=== PATIENT | male | born 1975 | race Caucasian/White ===

== ENCOUNTER 2019-07-06 14:24 | Inpatient (IN) | payer OTHER ==
[~2019-07-06] VITALS: Ht 188 cm; Wt 127.0 kg
[2019-07-06 09:20] VITALS: BP 148/88
[2019-07-06 17:15] LABS: HEMATOCRIT 43.5 % (42.0-54.0); HEMOGLOBIN 14.4 g/dL (13.5-17.5); MCH 29.9 pg (26.0-34.0); MCHC 33.1 g/dL (31.0-37.0); MCV 90.2 fL (80.0-100.0); MEAN PLATELET VOLUME 9.9 fL (7.4-10.4); PLATELET COUNT 404 10x3/uL (130-400); RBC 4.82 10x6/uL (4.20-6.10); RDW 14.9 % (11.5-14.5); WBC 22.9 10x3/uL (4.8-10.8)
[2019-07-06 17:20] LABS: INR 1.45 (0.85-1.17); PROTIME 17.5 SECONDS (11.6-15.0)
[2019-07-06 17:21] LABS: APTT 84.7 SECONDS (22.8-39.4)
[2019-07-06 17:30] LABS: CALC OSMOLALITY 275 mosm/kg (275-300); CALCIUM 9.2 mg/dL (8.5-10.1); CARBON DIOXIDE 26.3 mmol/L (21.0-32.0); CHLORIDE - SERUM 98 mmol/L (98-107); CREATININE - SERUM 0.9 mg/dL (0.6-1.3); GLUCOSE 135 mg/dL (74-106); POTASSIUM - SERUM 3.7 mmol/L (3.5-5.1); SODIUM 136 mmol/L (136-145); UREA NITROGEN 18 mg/dL (7-18); eGFR NON AFRICAN AMERICAN > 90 mL/min (90-120)
[2019-07-06 17:44] LABS: ALBUMIN 2.6 g/dL (3.4-5.0); ALKALINE PHOSPHATASE 344 U/L (46-116); ALT (SGPT) 85 U/L (10-68); BILIRUBIN - TOTAL 0.38 mg/dL (0.2-1.3); CKMB 0.1 U/L (0.0-3.6); CREATINE KINASE 27 UL (21-232); TROPONIN-I < 0.017 ng/mL (0.000-0.060)
--- NOTE | 2019-07-06 18:01 | NUR ---
LACTIC 2.[address] DR PENDLETON NOTIFIED.
[2019-07-06 18:03] LABS: LYMPHOCYTES 15 % (15-50); MONOCYTES 4 % (2-11); NEUTROPHILS 81 % (40-80); PLATELET ESTIMATE NORMAL
[2019-07-06 18:12] VITALS: BP 162/95
--- NOTE | 2019-07-06 20:35 | NUR ---
ZOSYN IV ANTIBIOTIC FINISHED AT THIS TIME.
[2019-07-06 21:20] VITALS: BP 148/88
[2019-07-06 23:40] VITALS: BP 148/88; BMI 36.0
[2019-07-06] MEDS ORDERED: IBUPROFEN100 MG/5 M PO (23:57)
[2019-07-07 01:39] VITALS: BP 131/53
--- NOTE | 2019-07-07 04:54 | NUR ---
LYING IN BED RESTING WITH EYES CLSOED. NO SIGNS OR SYMPTOMS OF DISTRESS NOTED. RESPIRATIONS EVEN AND UNLABORED. ALERT AND ORIENTED x4. UP WITH STANDBY ASSIST. PRN MORPHINE GIVEN FOR 10/10 PAIN. NO COMPLAINT OF PAIN AT THIS TIME. PT NO LONGER WANTS MORPHINE FOR PAIN INSTAD HE WANTS DILAUDID INSTEAD. CONTINENT OF BOWELL AND BLADDER. USES URINAL. BOWELL SOUNDS ACTIVE x4. STATES LAST BOWELL MOVEMNET 07/06/2019. STOMACH SOFT TO PALPATION. NPO AFTER MIDNIGHT FOR PROCEDURE. 22G RIGHT CHEST IV. PT REFUSED TO ANSWER SOME OF THE ADMISSION QUESTIONS. LOWER RIGHT FOOT RED, SWOLLEN, AND WARM TO THE TOUCH. PILLOW PLACED UNDER FOOT TO ELEVATE FOOT. BED IN LOWEST POSITION AND CALL LIGHT WITH IN REACH. PT ENCOURAGED TO CALL FOR HELP WHEN NEEDED. WILL CONTINUE MONITOR.
[2019-07-07 05:30] VITALS: BP 146/86
--- NOTE | 2019-07-07 07:29 | NUR ---
REPORT RECEIVED. WILL CONTINUE WITH POC. PT CURRENTLY ASLEEP WITH EYES CLOSED ON RIGHT SIDE. CALL LIGHT W/I REACH. RR EVEN AND UNLABORED ON RA. R.CHEST PIV IS SALINE LOCKED. NO S/S OF DISTRESS NOTED. WILL CTM.
[2019-07-07 07:31] LABS: CALC OSMOLALITY 272 mosm/kg (275-300); CALCIUM 8.7 mg/dL (8.5-10.1); CARBON DIOXIDE 27.7 mmol/L (21.0-32.0); CHLORIDE - SERUM 101 mmol/L (98-107); CREATININE - SERUM 0.8 mg/dL (0.6-1.3); GLUCOSE 98 mg/dL (74-106); MAGNESIUM - SERUM 2.2 mg/dL (1.8-2.4); PHOSPHOROUS 4.9 mg/dL (2.5-4.9); SODIUM 136 mmol/L (136-145); UREA NITROGEN 15 mg/dL (7-18); VANCOMYCIN - RANDOM 7.6 ug/mL (10.0-20.0); eGFR NON AFRICAN AMERICAN > 90 mL/min (90-120)
[2019-07-07 07:32] LABS: POTASSIUM - SERUM 4.3 mmol/L (3.5-5.1)
[2019-07-07 08:00] VITALS: BP 145/86
[2019-07-07 08:30] LABS: BASOPHILS 0.2 % (0-2); EOSINOPHILS 0.6 % (0-7); HEMOGLOBIN 12.3 g/dL (13.5-17.5); LYMPHOCYTES 14.4 % (15-50); MCHC 32.4 g/dL (31.0-37.0); MCV 89.6 fL (80.0-100.0); MEAN PLATELET VOLUME 10.3 fL (7.4-10.4); MONOCYTES 6.1 % (2-11); NEUTROPHILS 74.7 % (40-80); PLATELET COUNT 413 10x3/uL (130-400); RBC 4.24 10x6/uL (4.20-6.10)
[2019-07-07 08:34] LABS: WBC 16.9 10x3/uL (4.8-10.8)
[2019-07-07 12:03] VITALS: BP 138/91
[2019-07-07 13:14] LABS: UDS - AMPHET POSITIVE QUAL (NEGATIVE); UDS - BARB NEGATIVE QUAL (NEGATIVE); UDS - BENZO NEGATIVE QUAL (NEGATIVE); UDS - COCAINE NEGATIVE QUAL (NEGATIVE); UDS - OPIATE POSITIVE QUAL (NEGATIVE); UDS - PCP NEGATIVE QUAL (NEGATIVE); UDS - THC POSITIVE QUAL (NEGATIVE)
[2019-07-07 13:35] LABS: APPEARANCE CLEAR (CLEAR); COLOR YELLOW (YELLOW); GLUCOSE NEGATIVE (NEGATIVE); NITRITE NEGATIVE (NEGATIVE); PROTEIN NEGATIVE (NEGATIVE); SPECIFIC GRAVITY 1.015 (1.005-1.020)
[2019-07-07 13:36] LABS: BILIRUBIN NEGATIVE (NEGATIVE); KETONE NEGATIVE (NEGATIVE)
[2019-07-07 13:42] VITALS: Ht 188 cm; Wt 127.0 kg
--- NOTE | 2019-07-07 14:18 | MORECARE ---
CASE MANAGEMENT DISCHARGE SUMMARY PATIENT: MARILIN RICKS UNIT: [id number] ADM DATE: 07/06/19 AGE: 43 : 75 SEX: M ROOM/BED: D.1212 AUTHOR: ALONZO PALACIO PHYSICIAN: REFERRING PHYSICIAN: JACQUI AGUAYO MD DATE OF SERVICE: 07/07/19 Discharge Plan Patient Name: MARILIN RICKS Facility: [facility]:[place] : 1975 Planned Disposition: Home Anticipated Discharge Date: 07/11/19 Discharge Date: Expected LOS: 5 Initial Reviewer: [email or web address] Initial Review Date: 07/06/2019 Generated: 07/07/19 3:17 pm Patient Name: MARILIN RICKS Page [phone] at 1418 All edits/amendments must be made on the electronic document DICTATION DATE: 07/07/19 141 WAREHOUSE FOREMAN: HANS 07/07/19 1417 RPT#: [id number] DC DATE: STATUS: ADM IN [facility] [address] [place] [address] END OF REPORT
--- NOTE | 2019-07-07 14:27 | MORECARE ---
CASE MANAGEMENT DISCHARGE SUMMARY PATIENT: MARILIN RICKS UNIT: [id number] ADM DATE: 07/06/19 AGE: 43 : 75 SEX: M ROOM/BED: D.1212 AUTHOR: HAKEEM,DOC PHYSICIAN: REFERRING PHYSICIAN: JACQUI AGUAYO MD DATE OF SERVICE: 07/07/19 Discharge Plan Patient Name: MARILIN RICKS Facility: [facility]:[place] : 1975 Planned Disposition: Home Anticipated Discharge Date: 07/11/19 Discharge Date: Expected LOS: 5 Initial Reviewer: [email or web address] Initial Review Date: 07/06/2019 Generated: 07/07/19 3:27 pm Comments DCP- Discharge Planning Updated by [email or web address]: Bhavani Daniels on 07/07/19 1:[address] DC PLAN: Return home independently. ANTICIPATED DC NEEDS: denied known dc needs at time of assessment. CM met with patient to complete initial dc planning assessment. CM educated patient on the CM role and verbal consent given by patient to complete assessment. CM verified patient's address, phone number, and emergency contact phone numbers. Patient lives at home and his little brother lives with him. 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 At discharge patient plans to return home independently and feels this is a safe discharge. CM discussed availability of home health, rehab services, and medical equipment. Patient denied known discharge needs at this time. Transportation provider at discharge will be his brother. CM will continue to follow and will assist as needed with dc plans/needs. Bhavani Daniels RN, [facility] DCPIA - Discharge Planning Initial Assessment Updated by [email or web address]: Bhavani Daniels on 07/07/19 2:18 pm * Is the patient Alert and Oriented? Yes * How many steps to enter\exit or inside your home? None * PCP No PCP - Info given on MD's taking new patients. * Pharmacy [facility] [address] * Preadmission Environment Home with Family * ADLs Independent * Equipment None * List name and contact numbers for known caregivers / representatives who currently or will assist patient after discharge: Erickson Ricks - brother - [phone] * Verbal permission to speak to the caregivers and representatives has been obtained from the patient. Yes * Community resources currently utilized None * Additional services required to return to the preadmission environment? No * Can the patient safely return to the preadmission environment? Yes * Has this patient been hospitalized within the prior 30 days at any hospital? No Last DP export: 07/07/19 1:18 pm Patient Name: MARILIN RICKS Page [phone] at 1427 All edits/amendments must be made on the electronic document DICTATION DATE: 07/07/191426 FOILING MACHINE OPERATOR: HANS 07/07/191426 RPT#: [id number] DC DATE: STATUS: ADM IN [facility] [address] [place] [address] END OF REPORT
--- NOTE | 2019-07-07 14:45 | NUR ---
LEFT LOWER LEG IS RED AND EDEMATOUS. ON THE DORSAL FOOT THERE IS A HEALING BLISTER. A FEW SCABS ARE NOTED ON THE SANTIAGO AND CALF. THERE IS NO DRAINAGE OR ODOR. RECOMMENDED THAT PT KEEP HIS LEG CLEAN AND DRY AND ELEVATED.
[2019-07-07 16:17] VITALS: BP 139/78
--- NOTE | 2019-07-07 16:33 | NUR ---
PT LYING SEMI FOWLERS. CALL LIGHT W/I REACH. NS INFUSING @100ML/HR VIA R.CHEST PIV. PT REPORTS OF NO PAIN AT THIS TIME AND DENIES ANY NEEDS. WILL CTM.
[2019-07-07 20:02] VITALS: BP 146/77
--- NOTE | 2019-07-07 20:25 | NUR ---
EVENING ROUNDS COMPLETED. VSS, AAOX4. PT LAYING COMFORTABLY IN BED, COMPLAIN OF PAIN IN LEG AND BACK. IV DILAUDID GIVEN. PT DENIES ANY FURTHER NEEDS AT THIS TIME. WILL CPOC. CL WITHIN REACH.
[2019-07-08 01:08] VITALS: BP 140/91
--- NOTE | 2019-07-08 01:17 | NUR ---
PT C/O PAIN IN LEG/FOOT. IV PRN DILAUDID GIVEN. IV ZOSYN INFUSING AT THIS TIME. WILL CPOC.
[2019-07-08 06:05] VITALS: BP 96/52
[2019-07-08 07:07] LABS: BASOPHILS 0.3 % (0-2); EOSINOPHILS 0.8 % (0-7); HEMATOCRIT 39.2 % (42.0-54.0); HEMOGLOBIN 12.8 g/dL (13.5-17.5); LYMPHOCYTES 18.6 % (15-50); MCH 29.2 pg (26.0-34.0); MCHC 32.7 g/dL (31.0-37.0); MCV 89.5 fL (80.0-100.0); MEAN PLATELET VOLUME 9.6 fL (7.4-10.4); MONOCYTES 6.6 % (2-11); NEUTROPHILS 69.7 % (40-80); PLATELET COUNT 367 10x3/uL (130-400); RBC 4.38 10x6/uL (4.20-6.10); RDW 14.7 % (11.5-14.5); WBC 14.3 10x3/uL (4.8-10.8)
[2019-07-08 07:22] LABS: CALC OSMOLALITY 274 mosm/kg (275-300); CALCIUM 8.5 mg/dL (8.5-10.1); CARBON DIOXIDE 27.4 mmol/L (21.0-32.0); CHLORIDE - SERUM 101 mmol/L (98-107); CREATININE - SERUM 0.9 mg/dL (0.6-1.3); GLUCOSE 106 mg/dL (74-106); MAGNESIUM - SERUM 2.4 mg/dL (1.8-2.4); PHOSPHOROUS 4.4 mg/dL (2.5-4.9); SODIUM 137 mmol/L (136-145); UREA NITROGEN 14 mg/dL (7-18); eGFR NON AFRICAN AMERICAN > 90 mL/min (90-120)
[2019-07-08 09:04] VITALS: BP 131/76
[2019-07-08 12:20] VITALS: BP 143/87
--- NOTE | 2019-07-08 15:09 | NUR ---
APPLIED XEROFORM GAUZE OVER BLISTER ON LEFT FOOT, OVER PUSTULES ON INNER LEFT ANKLE AND SANTIAGO. COVERED WITH 4X4S AND WRAPPED WITH KERLIX.
[2019-07-08 16:00] VITALS: BP 159/95
--- NOTE | 2019-07-08 18:50 | NUR ---
PATIENT IN BED WITH FAMILY AT THE BEDSIDE. NO ACUTE S/S OF DISTRESS. NO COMPLAINTS AT THIS TIME. PATIENT IV R UPPER ARM INFUSING NORMAL SALINE @ 100 ML/HR. PATIENT HAS BLISTERS ON BOTH LEGS, WITH DRESSINGS C/D/I. CALL LIGHT IN PLACE. WILL CONTINUE TO MONITOR.
[2019-07-08 19:58] VITALS: BP 140/79
--- NOTE | 2019-07-09 02:52 | NUR ---
WITNESSED DILAUDID WASTE WITH ROHAN RIOS
--- NOTE | 2019-07-09 03:31 | NUR ---
I have reviewed this patient and I concur with the Shift Assessment completed by the Licensed Practical Nurse today this shift.
[2019-07-09 04:43] VITALS: BP 134/71
[2019-07-09 07:40] LABS: BASOPHILS 0.3 % (0-2); EOSINOPHILS 0.7 % (0-7); HEMATOCRIT 40.9 % (42.0-54.0); HEMOGLOBIN 13.4 g/dL (13.5-17.5); IMMATURE GRANULOCYTES 2.3 % (0-5); LYMPHOCYTES 17.2 % (15-50); MCH 29.4 pg (26.0-34.0); MCHC 32.8 g/dL (31.0-37.0); MCV 89.7 fL (80.0-100.0); MEAN PLATELET VOLUME 9.5 fL (7.4-10.4); MONOCYTES 5.6 % (2-11); NEUTROPHILS 73.9 % (40-80); PLATELET COUNT 414 10x3/uL (130-400); RBC 4.56 10x6/uL (4.20-6.10); RDW 14.6 % (11.5-14.5); WBC 14.7 10x3/uL (4.8-10.8)
[2019-07-09 07:47] VITALS: BP 151/69
--- NOTE | 2019-07-09 07:54 | NUR ---
ALERT AND ORIENTED X4. DRESSING INTACT TO LLE WITH DILAUDID TAKE FOR PAIN MANAGEMENT. PEDAL PULSES NOTED. IV TO RT UPPER ARM WITH NO S/S OF INFECTION/INFILTration with ivf infusing at prescribed rate.ENCOURAGED TO USE CALL LIGHT FOR ASSIST.
[2019-07-09 07:58] LABS: CALC OSMOLALITY 272 mosm/kg (275-300); CALCIUM 9.1 mg/dL (8.5-10.1); CHLORIDE - SERUM 101 mmol/L (98-107); CREATININE - SERUM 0.9 mg/dL (0.6-1.3); GLUCOSE 108 mg/dL (74-106); MAGNESIUM - SERUM 2.5 mg/dL (1.8-2.4); PHOSPHOROUS 4.5 mg/dL (2.5-4.9); POTASSIUM - SERUM 4.3 mmol/L (3.5-5.1); SODIUM 136 mmol/L (136-145); UREA NITROGEN 12 mg/dL (7-18); eGFR NON AFRICAN AMERICAN > 90 mL/min (90-120)
[2019-07-09 11:18] VITALS: BP 129/82
[2019-07-09 16:01] VITALS: BP 150/87
[2019-07-09 19:00] VITALS: BP 132/77
--- NOTE | 2019-07-09 22:39 | NUR ---
WITNESSED DILAUDID WASTE WITH ROHAN RIOS
[2019-07-10] VITALS: BP 136/72
[2019-07-10 04:00] VITALS: BP 137/76
[2019-07-10 07:13] LABS: BASOPHILS 0.3 % (0-2); EOSINOPHILS 0.8 % (0-7); HEMATOCRIT 42.8 % (42.0-54.0); HEMOGLOBIN 13.6 g/dL (13.5-17.5); IMMATURE GRANULOCYTES 1.8 % (0-5); LYMPHOCYTES 22.4 % (15-50); MCH 28.8 pg (26.0-34.0); MCHC 31.8 g/dL (31.0-37.0); MCV 90.7 fL (80.0-100.0); MEAN PLATELET VOLUME 9.5 fL (7.4-10.4); MONOCYTES 7.2 % (2-11); NEUTROPHILS 67.5 % (40-80); PLATELET COUNT 420 10x3/uL (130-400); RBC 4.72 10x6/uL (4.20-6.10); RDW 14.5 % (11.5-14.5)
[2019-07-10 07:21] LABS: WBC 10.8 10x3/uL (4.8-10.8)
[2019-07-10 07:41] LABS: CALC OSMOLALITY 273 mosm/kg (275-300); CALCIUM 9.1 mg/dL (8.5-10.1); CARBON DIOXIDE 28.2 mmol/L (21.0-32.0); CHLORIDE - SERUM 102 mmol/L (98-107); CREATININE - SERUM 0.9 mg/dL (0.6-1.3); GLUCOSE 110 mg/dL (74-106); MAGNESIUM - SERUM 2.4 mg/dL (1.8-2.4); PHOSPHOROUS 4.6 mg/dL (2.5-4.9); POTASSIUM - SERUM 4.2 mmol/L (3.5-5.1); SODIUM 136 mmol/L (136-145); UREA NITROGEN 14 mg/dL (7-18); eGFR NON AFRICAN AMERICAN > 90 mL/min (90-120)
[2019-07-10 08:00] VITALS: BP 142/79
--- NOTE | 2019-07-10 09:00 | NUR ---
ALERT AND ORIENTEED X4. DRESSING INTACT TO LLE WITH PEDAL PULSES NOTED WITH 1+ EDEMA NOTED TO LLE. IV TO LUE WITH IVF INFUSING AT PRESCRIBED RATE WITH NO S/S OF INFECTION/INFILTRATION NOTED. DILAUDID GIVEN PORN FOR PAIN MANAGEMENT AND EFFECTIVE. ENCOURAGED TO USE CALL LIGHT FOR ASSIST.
[2019-07-10 15:55] VITALS: BP 140/75
--- NOTE | 2019-07-10 19:35 | NUR ---
PATIENT RESTING IN BED AND DENIES NEEDS AT THIS TIME. DISCUSSED PAIN MEDS WITH PATIENT PER HIS REQUEST. PATIENT DENIES OTHER NEEDS AT THIS TIME. BED IN LOWEST POSITION AND CALL LIGHT WITHIN REACH. ENCOURAGED THE PATIENT TO CALL IF HE HAS NEEDS. WILL CONTINUE TO MONITOR.
[2019-07-10 20:32] VITALS: BP 139/93
[2019-07-11] VITALS (7 sets, daily range): BP systolic 118–163; BP diastolic 66–84
[2019-07-11 06:46] LABS: BASOPHILS 0.2 % (0-2); EOSINOPHILS 1.2 % (0-7); HEMATOCRIT 40.9 % (42.0-54.0); HEMOGLOBIN 13.1 g/dL (13.5-17.5); IMMATURE GRANULOCYTES 1.1 % (0-5); MCH 28.9 pg (26.0-34.0); MCV 90.3 fL (80.0-100.0); MEAN PLATELET VOLUME 9.4 fL (7.4-10.4); MONOCYTES 8.3 % (2-11); NEUTROPHILS 65.2 % (40-80); PLATELET COUNT 417 10x3/uL (130-400); RBC 4.53 10x6/uL (4.20-6.10); RDW 14.4 % (11.5-14.5); WBC 9.1 10x3/uL (4.8-10.8)
[2019-07-11 07:04] LABS: CALC OSMOLALITY 268 mosm/kg (275-300); CALCIUM 9.2 mg/dL (8.5-10.1); CARBON DIOXIDE 28.3 mmol/L (21.0-32.0); CHLORIDE - SERUM 101 mmol/L (98-107); GLUCOSE 99 mg/dL (74-106); MAGNESIUM - SERUM 2.3 mg/dL (1.8-2.4); PHOSPHOROUS 4.7 mg/dL (2.5-4.9); POTASSIUM - SERUM 4.5 mmol/L (3.5-5.1); SODIUM 134 mmol/L (136-145); UREA NITROGEN 15 mg/dL (7-18); eGFR NON AFRICAN AMERICAN 87 mL/min (90-120)
--- NOTE | 2019-07-11 08:06 | NUR ---
PT C/O SOB AND PAIN. PLACED ON 2L NC AND GAVE PERCOCET FOR PAIN LEVEL OF 9/10. PT DENIES ANY OTHER NEEDS AT THIS TIME. CALL LIGHT IN REACH, NAD NOTED, WILL CONTINUE TO MONITOR.
--- NOTE | 2019-07-11 10:18 | NUR ---
CALLED EVA BENITEZ APRN, AND NOTIFIED HER ABOUT PT NOT WANTING TO GET STUCK AGAIN TO GET 20G FOR CTA OF CHEST. PER EVA BENITEZ PT NEEDS TO HAVE TEST DONE.
--- NOTE | 2019-07-11 10:27 | NUR ---
PROVIDED VERBAL AND WRITTEN DISCHARGE TEACHING TO PT, WHO VERBALIZED UNDERSTANDING REGARDING TEACHING.
--- NOTE | 2019-07-11 10:43 | NUR ---
GAVE 1MG OF DILAUDID FOR PAIN LEVEL OF 10/10. SULY RAMON VASCULAR NURSE TO START NEW 2OG IV FOR CTA OF CHEST.
--- NOTE | 2019-07-11 13:38 | NUR ---
PT SIGNED CONSENTS FOR SURGERY, PRE-OP MEDS GIVEN, PT TO OR AT THIS TIME.
--- NOTE | 2019-07-11 19:23 | NUR ---
PATIENT RESTING IN BED WITH EYES CLOSED AND NO S/S OF DISTRESS. BED IN LOWEST POSITION AND CALL LIGHT WITHIN REACH. WILL CONTINUE TO MONITOR.
--- NOTE | 2019-07-11 20:24 | NUR ---
PATIENT VOIDED 600 ML POSTOP
[2019-07-12 00:43] VITALS: BP 131/85
[2019-07-12 05:50] VITALS: BP 153/70
[2019-07-12 06:11] LABS: BASOPHILS 0.2 % (0-2); EOSINOPHILS 1.2 % (0-7); HEMATOCRIT 40.8 % (42.0-54.0); IMMATURE GRANULOCYTES 0.5 % (0-5); LYMPHOCYTES 26.2 % (15-50); MCH 28.8 pg (26.0-34.0); MCHC 31.9 g/dL (31.0-37.0); MCV 90.3 fL (80.0-100.0); MEAN PLATELET VOLUME 9.3 fL (7.4-10.4); MONOCYTES 8.5 % (2-11); NEUTROPHILS 63.4 % (40-80); PLATELET COUNT 458 10x3/uL (130-400); RBC 4.52 10x6/uL (4.20-6.10); RDW 14.5 % (11.5-14.5); WBC 8.4 10x3/uL (4.8-10.8)
[2019-07-12 06:25] LABS: ALBUMIN 2.6 g/dL (3.4-5.0); ALKALINE PHOSPHATASE 228 U/L (46-116); ALT (SGPT) 48 U/L (10-68); CALC OSMOLALITY 270 mosm/kg (275-300); CARBON DIOXIDE 28.4 mmol/L (21.0-32.0); CHLORIDE - SERUM 101 mmol/L (98-107); CREATININE - SERUM 0.9 mg/dL (0.6-1.3); GLUCOSE 90 mg/dL (74-106); POTASSIUM - SERUM 4.7 mmol/L (3.5-5.1); PROTEIN - SERUM 8.2 g/dL (6.4-8.2); SODIUM 135 mmol/L (136-145); UREA NITROGEN 15 mg/dL (7-18); eGFR NON AFRICAN AMERICAN > 90 mL/min (90-120)
[2019-07-12 08:23] VITALS: BP 131/85
--- NOTE | 2019-07-12 09:05 | NUR ---
GAVE PERCOCET FOR PAIN LEVEL OF 9/10. PT REFUSED NICOTINE PATCH. WAITING ON VANC TROUGH TO HANG VANCOMYCIN. PT DENIES ANY OTHER NEEDS AT THIS TIME. CALL LIGHT IN REACH, NAD NOTED, WILL CONTINUE TO MONITOR.
--- NOTE | 2019-07-12 11:13 | NUR ---
GAVE 1MG OF DILAUDID FOR PAIN LEVEL OF 9/10. PT DENIES ANY OTHER NEEDS AT THIS TIME. PIPE SMOKING MACHINE OPERATOR AT BEDSIDE. CALL LIGHT IN REACH, NAD NOTED, WILL CONTINUE TO MONITOR.
[2019-07-12 12:00] VITALS: BP 134/69
[2019-07-12 15:33] VITALS: BP 131/71
[2019-07-12 20:09] VITALS: BP 154/80
[2019-07-13 00:23] VITALS: BP 122/65
[2019-07-13 06:05] VITALS: BP 118/76
[2019-07-13 06:12] LABS: BASOPHILS 0.3 % (0-2); EOSINOPHILS 1.3 % (0-7); HEMATOCRIT 40.9 % (42.0-54.0); HEMOGLOBIN 13.1 g/dL (13.5-17.5); IMMATURE GRANULOCYTES 0.4 % (0-5); MCH 28.8 pg (26.0-34.0); MCV 89.9 fL (80.0-100.0); MEAN PLATELET VOLUME 9.1 fL (7.4-10.4); PLATELET COUNT 482 10x3/uL (130-400); RBC 4.55 10x6/uL (4.20-6.10); RDW 14.3 % (11.5-14.5); WBC 7.7 10x3/uL (4.8-10.8)
[2019-07-13 06:57] LABS: ALBUMIN 2.6 g/dL (3.4-5.0); ALKALINE PHOSPHATASE 197 U/L (46-116); ALT (SGPT) 44 U/L (10-68); BILIRUBIN - TOTAL 0.25 mg/dL (0.2-1.3); CALC OSMOLALITY 271 mosm/kg (275-300); CALCIUM 8.7 mg/dL (8.5-10.1); CARBON DIOXIDE 28.1 mmol/L (21.0-32.0); CHLORIDE - SERUM 102 mmol/L (98-107); CREATININE - SERUM 0.9 mg/dL (0.6-1.3); GLUCOSE 100 mg/dL (74-106); POTASSIUM - SERUM 4.5 mmol/L (3.5-5.1); PROTEIN - SERUM 8.4 g/dL (6.4-8.2); SODIUM 136 mmol/L (136-145); UREA NITROGEN 13 mg/dL (7-18); eGFR NON AFRICAN AMERICAN > 90 mL/min (90-120)
[2019-07-13 07:23] VITALS: BP 152/95
[2019-07-13 12:03] VITALS: BP 137/82
--- NOTE | 2019-07-13 12:21 | NUR ---
1MG OF DILAUDID GIVEN FOR PAIN LEVEL OF 10/10. ANAND MAR APRN AT BEDSIDE TO CHANGE LEG DRESSING.
--- NOTE | 2019-07-13 14:27 | NUR ---
Nutrition Follow-up: Chart reviewed, I&D yesterday. Plans for repeat I&D tomorrow. Diet: Regular PO intake: 75-100% x all meals Last BM: 07/12/19. WT: 280# (07/07/19), no new wt Meds and labs reviewed. Patient appears to remain at low nutrition risk at this time. RD will continue to monitor nutrition risk status per policy.
[2019-07-13 16:20] VITALS: BP 142/92
--- NOTE | 2019-07-13 16:21 | NUR ---
1 MG OF DILAUDID GIVEN FOR PAIN LEVEL OF 9/10. PT DENIES ANY OTHER NEEDS AT THIS TIME. CALL LIGHT IN REACH.
--- NOTE | 2019-07-13 19:04 | NUR ---
CALLED PHARMACY AND TALKED TO ELTICIA, INFORMED HIM THAT [facility] IS OUT OF ZOSYN.
[2019-07-13 20:17] VITALS: BP 153/78
--- NOTE | 2019-07-13 20:45 | NUR ---
EVENING ROUNDS COMPLETED. VSS, AAOX4, NO S/S OF DISTRESS. ALTHOUGH PT C/O PAIN IN LEFT LOWER LEG. PRN DILAUDID GIVEN. DRESSING TO LLL APPEARS C/D/I. PT DENIES ANY FURTHER NEEDS AT THIS TIME. WILL CPOC.
[2019-07-14 00:34] VITALS: BP 129/67
[2019-07-14 06:40] VITALS: BP 128/68
[2019-07-14 06:43] LABS: BASOPHILS 0.5 % (0-2); EOSINOPHILS 1.4 % (0-7); HEMATOCRIT 43.3 % (42.0-54.0); HEMOGLOBIN 13.7 g/dL (13.5-17.5); IMMATURE GRANULOCYTES 0.3 % (0-5); LYMPHOCYTES 32.7 % (15-50); MCH 28.8 pg (26.0-34.0); MCHC 31.6 g/dL (31.0-37.0); NEUTROPHILS 55.1 % (40-80); PLATELET COUNT 463 10x3/uL (130-400); RBC 4.76 10x6/uL (4.20-6.10); RDW 14.1 % (11.5-14.5); WBC 7.8 10x3/uL (4.8-10.8)
[2019-07-14 07:03] LABS: ALBUMIN 2.6 g/dL (3.4-5.0); ALKALINE PHOSPHATASE 177 U/L (46-116); ALT (SGPT) 56 U/L (10-68); BILIRUBIN - TOTAL 0.28 mg/dL (0.2-1.3); CALC OSMOLALITY 272 mosm/kg (275-300); CALCIUM 8.8 mg/dL (8.5-10.1); CARBON DIOXIDE 28.3 mmol/L (21.0-32.0); CHLORIDE - SERUM 102 mmol/L (98-107); CREATININE - SERUM 0.9 mg/dL (0.6-1.3); GLUCOSE 104 mg/dL (74-106); POTASSIUM - SERUM 4.3 mmol/L (3.5-5.1); PROTEIN - SERUM 8.7 g/dL (6.4-8.2); SODIUM 136 mmol/L (136-145); UREA NITROGEN 14 mg/dL (7-18); eGFR NON AFRICAN AMERICAN > 90 mL/min (90-120)
--- NOTE | 2019-07-14 07:10 | NUR ---
REPORT RECEIVED FROM METALLURGICAL TECHNICIAN AND PATIENT CARE ASSUMED. PATIENT LAYING IN BED ON BACK WITH EYES CLOSED AND BREATHING EVENLY. WILL CONTINUE WITH PLAN OF CARE.
[2019-07-14 07:21] VITALS: BP 132/83
[2019-07-14 10:44] VITALS: BP 146/76
--- NOTE | 2019-07-14 11:55 | NUR ---
PATIENT LAYING IN BED WATCHING TV. PATIENT DENIES ANY NEEDS OR PAIN. WILL CONTINUE TO MONITOR. SR UP X 2 BED IN LOW POSITION AND CALL LIGHT IN REACH.
--- NOTE | 2019-07-14 13:20 | NUR ---
PATIENT IS STABLE AND VSS. CALL FROM SURGERY TEAM TO PREOP PATIENT. PREOP0 PER MAR ORDERS. PATIENT TO SURGERY VIA HOSPITAL BED AND ACCOMPANIED BY SURGERY STAFF. WILL CONTINUE TO MONITOR. SR UP X 2 BED IN LOW POSITION AND CALL LIGHT IN REACH.
--- NOTE | 2019-07-14 15:53 | NUR ---
CONSULTED ANESTHESIA REGARDING PERSISTENT ELEVATED BLOOD PRESSURE. VERBAL ORDERS RECEIVED FROM DR. GONZALES TO ADMINISTER HYDRALAZINE 10MG X1 IN PACU NOW. MAY REPEAT HYDRALAZINE 10MG X1 IN PACU PRN AFTER 10 MINUTES. ORDERS RECEIVED AND IMPLEMENTED. WILL CONTINUE TO MONITOR.
[2019-07-14 16:15] VITALS: BP 147/83
--- NOTE | 2019-07-14 19:55 | NUR ---
LYING IN BED WATCHING TV. ALERT AND ORIENTED X4. VERY TALKATIVE. RATES PAIN IN LLE 8. JUST RECEIVED PAIN MED AT SHIFT CHANGE. WOUND VAC WITH DOUBLE PORT SUCTION NOTED TO LLE WITH BLOODY DRAINAGE IN CANISTER. PEDAL PULSES WNL BILAT. ERSP EVEN AND NONLABORED. PROD COUGH REPORTED WITH WHITE SPUTUM. NS @ 100 MLHR INFUSING IN LT AC WITHOUT DIFF. SALINE LOCK NOTED TO LT FOREARM. SR ELEVATED X2. CL IN REACH.
--- NOTE | 2019-07-14 20:24 | NUR ---
MEDICATED WITH PERCOCET FOR C/O BREAKTHROUGH PAIN IN LLE. CL IN REACH.
[2019-07-14 20:43] VITALS: BP 144/80
--- NOTE | 2019-07-14 22:45 | NUR ---
REQUESTS DILAUDID FOR LLE PAIN. CL IN REACH. NO DISTRESS.
[2019-07-15 00:48] VITALS: BP 145/83
--- NOTE | 2019-07-15 01:47 | NUR ---
LYING IN BED WITH EYES CLOSED. RESP EVEN AND NONLABORED. NO DISTRESS. CL IN REACH.
--- NOTE | 2019-07-15 02:20 | NUR ---
REQUESTS PAIN MED. TOOK PERCOCET IN ROOM AND SCANNED IT AND OPENED PACKAGE AND THEN HE STATES HE WANTS THE DILAUDID. PERCOCET WASTED WITH KENDRA RESENDEZ.
--- NOTE | 2019-07-15 02:57 | NUR ---
MEDICATED WITH DILAUDID FOR C/O LLE RATING 9. CL IN REACH.
[2019-07-15 05:09] VITALS: BP 154/77
[2019-07-15 06:08] LABS: ALBUMIN 2.7 g/dL (3.4-5.0); ALKALINE PHOSPHATASE 173 U/L (46-116); ALT (SGPT) 58 U/L (10-68); BILIRUBIN - TOTAL 0.28 mg/dL (0.2-1.3); CALC OSMOLALITY 268 mosm/kg (275-300); CALCIUM 8.8 mg/dL (8.5-10.1); CARBON DIOXIDE 24.1 mmol/L (21.0-32.0); CHLORIDE - SERUM 102 mmol/L (98-107); CREATININE - SERUM 0.9 mg/dL (0.6-1.3); GLUCOSE 120 mg/dL (74-106); POTASSIUM - SERUM 4.4 mmol/L (3.5-5.1); SODIUM 133 mmol/L (136-145); eGFR NON AFRICAN AMERICAN > 90 mL/min (90-120)
[2019-07-15 06:10] LABS: UREA NITROGEN 19 mg/dL (7-18)
[2019-07-15 06:19] LABS: BASOPHILS 0.1 % (0-2); EOSINOPHILS 0 % (0-7); HEMOGLOBIN 13.6 g/dL (13.5-17.5); IMMATURE GRANULOCYTES 0.3 % (0-5); LYMPHOCYTES 14.9 % (15-50); MCH 28.8 pg (26.0-34.0); MCHC 31.6 g/dL (31.0-37.0); MCV 90.9 fL (80.0-100.0); MEAN PLATELET VOLUME 9.2 fL (7.4-10.4); NEUTROPHILS 79.7 % (40-80); RBC 4.73 10x6/uL (4.20-6.10); RDW 14.1 % (11.5-14.5)
[2019-07-15 06:29] LABS: PLATELET COUNT 565 10x3/uL (130-400); WBC 11.5 10x3/uL (4.8-10.8)
--- NOTE | 2019-07-15 07:34 | NUR ---
AWAKE AND ALERT. ORIENTED X3. REQUESTED AND GIVEN 1MG DILAUDID SLOW IVP FOR C/O LEFT FOOT PAIN LEVEL 9. WILL MONITOR. LUNGS ARE CLEAR BILATERALLY, NO COUGH NOTED. SKIN IS INTACT WITHOUT REDNESS EXCEPT LEFT FOOT WHICH HAS A DRY INTACT DRESSING IN PLACE WITH WOUND VAC. DENIES NEEDS. MIDLINE TO RIGHT AC AREA IS PATENT WITHOUT REDNESS AT INSERTION SITE.
[2019-07-15 08:03] VITALS: BP 121/78
--- NOTE | 2019-07-15 09:45 | NUR ---
ATE MOST OF BREAKFAST. GIVEN LOVENOX PER ORDERS. DENIES NEEDS. NO C/O AT THIS TIME.
--- NOTE | 2019-07-15 09:45 | MORECARE ---
CASE MANAGEMENT DISCHARGE SUMMARY PATIENT: MARILIN RICKS UNIT: [id number] ADM DATE: 07/06/19 AGE: 43 : 75 SEX: M ROOM/BED: D.1212 AUTHOR: HAKEEM,DOC PHYSICIAN: REFERRING PHYSICIAN: JACQUI AGUAYO MD DATE OF SERVICE: 07/15/19 Discharge Plan Patient Name: MARILIN RICKS Facility: [facility]:[place] : 1975 Planned Disposition: Home Anticipated Discharge Date: 07/11/19 Discharge Date: Expected LOS: 5 Initial Reviewer: [email or web address] Initial Review Date: 07/06/2019 Generated: 07/15/19 10:44 am DCP- Discharge Planning Updated by [email or web address]: Bhavani Daniels on 07/07/19 1:[address] DC PLAN: Return home independently. ANTICIPATED DC NEEDS: denied known dc needs at time of assessment. CM met with patient to complete initial dc planning assessment. CM educated patient on the CM role and verbal consent given by patient to complete assessment. CM verified patient's address, phone number, and emergency contact phone numbers. Patient lives at home and his little brother lives with him. 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 At discharge patient plans to return home independently and feels this is a safe discharge. CM discussed availability of home health, rehab services, and medical equipment. Patient denied known discharge needs at this time. Transportation provider at discharge will be his brother. CM will continue to follow and will assist as needed with dc plans/needs. Bhavani Dnaiels RN, [facility] DCPIA - Discharge Planning Initial Assessment Updated by [email or web address]: Bhavani Daniels on 07/07/19 2:18 pm * Is the patient Alert and Oriented? Yes * How many steps to enter\exit or inside your home? None * PCP No PCP - Info given on MD's taking new patients. * Pharmacy [facility] [address]. * Preadmission Environment Home with Family * ADLs Independent * Equipment None * List name and contact numbers for known caregivers / representatives who currently or will assist patient after discharge: Erickson Ricks - brothhernando - [phone] * Verbal permission to speak to the caregivers and representatives has been obtained from the patient. Yes * Community resources currently utilized None * Additional services required to return to the preadmission environment? No * Can the patient safely return to the preadmission environment? Yes * Has this patient been hospitalized within the prior 30 days at any hospital? No External Providers External Provider: [facility] [employer] Next Contact Date: Service Request Date: Service Type: Resolution: Reviewer: Comments: Last DP export: 07/07/19 1:27 pm Patient Name: MARILIN RICKS Page [phone] at 0945 All edits/amendments must be made on the electronic document DICTATION DATE: 07/15/19943 CAR BARN LABORER: HANS 07/15/19943 RPT#: [id number] DC DATE: STATUS: ADM IN [facility] [address] [place] [address] END OF REPORT
--- NOTE | 2019-07-15 09:52 | MORECARE ---
CASE MANAGEMENT DISCHARGE SUMMARY PATIENT: MARILIN RICKS UNIT: [id number] ADM DATE: 07/06/19 AGE: 43 : 75 SEX: M ROOM/BED: D.1212 AUTHOR: HAKEEM,DOC PHYSICIAN: REFERRING PHYSICIAN: JACQUI AGUAYO MD DATE OF SERVICE: 07/15/19 Discharge Plan Patient Name: MARILIN RICKS Facility: [facility]:[place] : 1975 Planned Disposition: Home Anticipated Discharge Date: 07/11/19 Discharge Date: Expected LOS: 5 Initial Reviewer: [email or web address] Initial Review Date: 07/06/2019 Generated: 07/15/19 10:52 am Comments DCP- Discharge Planning Updated by [email or web address]: Shelley Aj on 07/15/19 8:[address] Received orders for a home wound vac. I faxed order and clinical to [facility]. CM will continue to follow and assist with discharge planning/needs. DCP- Discharge Planning Updated by [email or web address]: Bhavani Daniels on 07/07/19 1:[address] DC PLAN: Return home independently. ANTICIPATED DC NEEDS: denied known dc needs at time of assessment. CM met with patient to complete initial dc planning assessment. CM educated patient on the CM role and verbal consent given by patient to complete assessment. CM verified patient's address, phone number, and emergency contact phone numbers. Patient lives at home and his little brother lives with him. 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 At discharge patient plans to return home independently and feels this is a safe discharge. CM discussed availability of home health, rehab services, and medical equipment. Patient denied known discharge needs at this time. Transportation provider at discharge will be his brother. CM will continue to follow and will assist as needed with dc plans/needs. Bhavani Daniels RN, [facility] DCPIA - Discharge Planning Initial Assessment Updated by [email or web address]: Bhavani Daniels on 07/07/19 2:18 pm * Is the patient Alert and Oriented? Yes * How many steps to enter\exit or inside your home? None * PCP No PCP - Info given on MD's taking new patients. * Pharmacy [facility] [address]. * Preadmission Environment Home with Family * ADLs Independent * Equipment None * List name and contact numbers for known caregivers / representatives who currently or will assist patient after discharge: Erickson Ricks - brother - [phone] * Verbal permission to speak to the caregivers and representatives has been obtained from the patient. Yes * Community resources currently utilized None * Additional services required to return to the preadmission environment? No * Can the patient safely return to the preadmission environment? Yes * Has this patient been hospitalized within the prior 30 days at any hospital? No Last DP export: 07/15/19 8:45 a Patient Name: MARILIN RICKS Page [phone] at 0952 All edits/amendments must be made on the electronic document DICTATION DATE: 07/15/19951 RECEIVING OPERATOR: HANS 07/15/19951 RPT#: [id number] DC DATE: STATUS: ADM IN [facility] [address] [place] [address] END OF REPORT
--- NOTE | 2019-07-15 11:28 | NUR ---
NUTRITION FOLLOW UP INTERVIEW: Met with patient this morning. He stated that his appetite has been good. He denied N/V/D/C and any new chewing/swallowing issues. DIET: Regular Diet PO INTAKE: 96% avg x 7 meals WT: 280 lbs BM: x 1 (07/14) SIG MEDS: Lovenox, Pepcid, Reglan, Zofran IV Fluid: NaCl @ 100 ml/hr SIG LABS: Na-133(L), BUN-19(H) GOALS: Continue po intake >75% meals, BM q 3 days, Stable weight DHS, Wound healing Clinical Dietitian to continue following patient DHS
[2019-07-15] MEDS ORDERED: PROTONIX40 MG PO (11:40)
[2019-07-15] MEDS ORDERED: DOXYCYCLINE HY100 M2 PO (11:40)
[2019-07-15 11:42] VITALS: BP 106/61
--- NOTE | 2019-07-15 12:01 | MORECARE ---
CASE MANAGEMENT DISCHARGE SUMMARY PATIENT: MARILIN RICKS UNIT: [id number] ADM DATE: 07/06/19 AGE: 43 : 75 SEX: M ROOM/BED: D.1212 AUTHOR: HAKEEMDOC PHYSICIAN: REFERRING PHYSICIAN: JACQUI AGUAYO MD DATE OF SERVICE: 07/15/19 Discharge Plan Patient Name: MARILIN RICKS Facility: [facility]:[place] : 1975 Planned Disposition: Home Anticipated Discharge Date: 07/11/19 Discharge Date: Expected LOS: 5 Initial Reviewer: [email or web address] Initial Review Date: 07/06/2019 Generated: 07/15/19 1:00 pm Comments DCP- Discharge Planning Updated by [email or web address]: Shelley Aj on 07/15/19 10:[address] Spoke with patient concerning home health and wound vac. EDITH for [facility] and [facility] signed. CM will continue to follow and assist with discharge planning/needs. DCP- Discharge Planning Updated by [email or web address]: Shelley Aj on 07/15/19 8:[address] Received orders for a home wound vac. I faxed order and clinical to [facility]. CM will continue to follow and assist with discharge planning/needs. DCP- Discharge Planning Updated by [email or web address]: Bhavani Daniels on 07/07/19 1:[address] DC PLAN: Return home independently. ANTICIPATED DC NEEDS: denied known dc needs at time of assessment. CM met with patient to complete initial dc planning assessment. CM educated patient on the CM role and verbal consent given by patient to complete assessment. CM verified patient's address, phone number, and emergency contact phone numbers. Patient lives at home and his little brother lives with him. 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 At discharge patient plans to return home independently and feels this is a safe discharge. CM discussed availability of home health, rehab services, and medical equipment. Patient denied known discharge needs at this time. Transportation provider at discharge will be his brother. CM will continue to follow and will assist as needed with dc plans/needs. Bhavani Daniels RN, [facility] DCPIA - Discharge Planning Initial Assessment Updated by [email or web address]: Bhavani Daniels on 07/07/19 2:18 pm * Is the patient Alert and Oriented? Yes * How many steps to enter\exit or inside your home? None * PCP No PCP - Info given on MD's taking new patients. * Pharmacy [facility] [address]. * Preadmission Environment Home with Family * ADLs Independent * Equipment None * List name and contact numbers for known caregivers / representatives who currently or will assist patient after discharge: Erickson Ricks - brother - [phone] * Verbal permission to speak to the caregivers and representatives has been obtained from the patient. Yes * Community resources currently utilized None * Additional services required to return to the preadmission environment? No * Can the patient safely return to the preadmission environment? Yes * Has this patient been hospitalized within the prior 30 days at any hospital? No External Providers External Provider: [facility] Next Contact Date: Service Request Date: Service Type: Resolution: Reviewer: Comments: Coverage Notice Reviewer: [email or web address] Dae Aj Notice Issued Date-Time: 07/15/2019 11:56 Notice Type: Patient Choice Letter Notice Delivered To: Patient Relationship to Patient: Self Housekeeper Supervisor Name: Delivery Method: HAND - Hand Delivered Delmis Days: Prior Verbal Notification: Recipient Understood Notice: Yes Recipient Signature: Yes Med Rec Note Co-signed by Attending: Coverage Notice Comment: Iban GREGORY Last DP export: 07/15/19 8:52 a Patient Name: MARILIN RICKS Page [id number] at 1201 All edits/amendments must be made on the electronic document DICTATION DATE: 07/15/19 1200 ORE ROASTER: HANS 07/15/19 1200 RPT#: [id number] DC DATE: STATUS: ADM IN [address] [place] [address] END OF REPORT
--- NOTE | 2019-07-15 12:15 | MORECARE ---
CASE MANAGEMENT DISCHARGE SUMMARY PATIENT: MARILIN RICKS UNIT: [id number] ADM DATE: 07/06/19 AGE: 43 : 75 SEX: M ROOM/BED: D.1212 AUTHOR: HAKEEMDOC PHYSICIAN: REFERRING PHYSICIAN: JACQUI AGUAYO MD DATE OF SERVICE: 07/15/19 Discharge Plan Patient Name: MARILIN RICKS Facility: [facility]:[place] : 1975 Planned Disposition: Home Anticipated Discharge Date: 07/11/19 Discharge Date: Expected LOS: 5 Initial Reviewer: [email or web address] Initial Review Date: 07/06/2019 Generated: 07/15/19 1:14 pm Comments DCP- Discharge Planning Updated by [email or web address]: Shelley Aj on 07/15/19 10:[address] Spoke with patient concerning home health and wound vac. EDITH for [facility] and [facility] signed. CM will continue to follow and assist with discharge planning/needs. DCP- Discharge Planning Updated by [email or web address]: Shelley Aj on 07/15/19 8:[address] Received orders for a home wound vac. I faxed order and clinical to [facility]. CM will continue to follow and assist with discharge planning/needs. DCP- Discharge Planning Updated by [id number]: Bhavani Daniels on 07/07/19 1:[address] DC PLAN: Return home independently. ANTICIPATED DC NEEDS: denied known dc needs at time of assessment. CM met with patient to complete initial dc planning assessment. CM educated patient on the CM role and verbal consent given by patient to complete assessment. CM verified patient's address, phone number, and emergency contact phone numbers. Patient lives at home and his little brother lives with him. 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 At discharge patient plans to return home independently and feels this is a safe discharge. CM discussed availability of home health, rehab services, and medical equipment. Patient denied known discharge needs at this time. Transportation provider at discharge will be his brother. CM will continue to follow and will assist as needed with dc plans/needs. Bhavani Daniels RN, [facility] DCPIA - Discharge Planning Initial Assessment Updated by [email or web address]: Bhavani Daniels on 07/07/19 2:18 pm * Is the patient Alert and Oriented? Yes * How many steps to enter\exit or inside your home? None * PCP No PCP - Info given on MD's taking new patients. * Pharmacy [facility] [address] * Preadmission Environment Home with Family * ADLs Independent * Equipment None * List name and contact numbers for known caregivers / representatives who currently or will assist patient after discharge: Erickson Ricks - brother - [phone] * Verbal permission to speak to the caregivers and representatives has been obtained from the patient. Yes * Community resources currently utilized None * Additional services required to return to the preadmission environment? No * Can the patient safely return to the preadmission environment? Yes * Has this patient been hospitalized within the prior 30 days at any hospital? No External Providers External Provider: OTHER-OTHER Next Contact Date: Service Request Date: Service Type: Resolution: Reviewer: Comments: Coverage Notice Reviewer: [id number] Dae Aj Notice Issued Date-Time: 07/15/2019 11:56 Notice Type: Patient Choice Letter Notice Delivered To: Patient Relationship to Patient: Self Balance Wheel Screw Hole Tapper Name: Delivery Method: HAND - Hand Delivered Delmis Days: Prior Verbal Notification: Recipient Understood Notice: Yes Recipient Signature: Yes Med Rec Note Co-signed by Attending: Coverage Notice Comment: Iban GREGORY Last DP export: 07/15/19 11:01 a Patient Name: MARILIN RICKS Page [id number] at 1215 All edits/amendments must be made on the electronic document DICTATION DATE: 07/15/19 121 HOSPITAL INSURANCE REPRESENTATIVE: HANS 07/15/19 1214 RPT#: [id number] DC DATE: STATUS: ADM IN [facility] [address] [place] [address] END OF REPORT
--- NOTE | 2019-07-15 12:23 | MORECARE ---
CASE MANAGEMENT DISCHARGE SUMMARY PATIENT: MARILIN RICKS UNIT: [id number] ADM DATE: 07/06/19 AGE: 43 : 75 SEX: M ROOM/BED: D.1212 AUTHOR: HAKEEM,DOC PHYSICIAN: REFERRING PHYSICIAN: JACQUI AGUAYO MD DATE OF SERVICE: 07/15/19 Discharge Plan Patient Name: MARILIN RICKS Facility: [facility]:[place] : 1975 Planned Disposition: Home Anticipated Discharge Date: 07/11/19 Discharge Date: Expected LOS: 5 Initial Reviewer: [email or web address] Initial Review Date: 07/06/2019 Generated: 07/15/19 1:23 pm Comments DCP- Discharge Planning Updated by [email or web address]: Shelley Aj on 07/15/19 11:[address] Spoke with Rachael at [facility] and sent referral. DCP- Discharge Planning Updated by [email or web address]: Shelley Aj on 07/15/19 10:[address] Spoke with patient concerning home health and wound vac. EDITH for [facility] and [facility] signed. CM will continue to follow and assist with discharge planning/needs. DCP- Discharge Planning Updated by [email or web address]: Shelley Aj on 07/15/19 8:[address] Received orders for a home wound vac. I faxed order and clinical to [facility]. CM will continue to follow and assist with discharge planning/needs. DCP- Discharge Planning Updated by [email or web address]: Bhavani Daniels on 07/07/19 1:[address] DC PLAN: Return home independently. ANTICIPATED DC NEEDS: denied known dc needs at time of assessment. CM met with patient to complete initial dc planning assessment. CM educated patient on the CM role and verbal consent given by patient to complete assessment. CM verified patient's address, phone number, and emergency contact phone numbers. Patient lives at home and his little brother lives with him. 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 At discharge patient plans to return home independently and feels this is a safe discharge. CM discussed availability of home health, rehab services, and medical equipment. Patient denied known discharge needs at this time. Transportation provider at discharge will be his brother. CM will continue to follow and will assist as needed with dc plans/needs. Bhavani Daniels RN, [facility] DCPIA - Discharge Planning Initial Assessment Updated by [email or web address]: Bhavani Daniels on 07/07/19 2:18 pm * Is the patient Alert and Oriented? Yes * How many steps to enter\exit or inside your home? None * PCP No PCP - Info given on MD's taking new patients. * Pharmacy [facility] [address]. * Preadmission Environment Home with Family * ADLs Independent * Equipment None * List name and contact numbers for known caregivers / representatives who currently or will assist patient after discharge: Erickson Ricks - brother - [phone] * Verbal permission to speak to the caregivers and representatives has been obtained from the patient. Yes * Community resources currently utilized None * Additional services required to return to the preadmission environment? No * Can the patient safely return to the preadmission environment? Yes * Has this patient been hospitalized within the prior 30 days at any hospital? No Coverage Notice Reviewer: [id number] Dae Aj Notice Issued Date-Time: 07/15/2019 11:56 Notice Type: Patient Choice Letter Notice Delivered To: Patient Relationship to Patient: Self Supervisor Scenic Arts Name: Delivery Method: HAND - Hand Delivered Delmis Days: Prior Verbal Notification: Recipient Understood Notice: Yes Recipient Signature: Yes Med Rec Note Co-signed by Attending: Coverage Notice Comment: Iban Ba DP export: 07/15/19 11:15 a Patient Name: MARILIN RICKS Page [phone] at 1223 All edits/amendments must be made on the electronic document DICTATION DATE: 07/15/19 1223 MOLECULAR BIOLOGY DIRECTOR: HANS 07/15/19 1223 RPT#: [id number] DC DATE: STATUS: ADM IN [facility] [address] [place] [address] END OF REPORT
--- NOTE | 2019-07-15 13:50 | MORECARE ---
CASE MANAGEMENT DISCHARGE SUMMARY PATIENT: MARILIN RICKS UNIT: [id number] ADM DATE: 07/06/19 AGE: 43 : 75 SEX: M ROOM/BED: D.1212 AUTHOR: HAKEEM,DOC PHYSICIAN: REFERRING PHYSICIAN: JACQUI AGUAYO MD DATE OF SERVICE: 07/15/19 Discharge Plan Patient Name: MARILIN RICKS Facility: [facility]:[place] : 1975 Planned Disposition: Home Anticipated Discharge Date: 07/11/19 Discharge Date: Expected LOS: 5 Initial Reviewer: [email or web address] Initial Review Date: 07/06/2019 Generated: 07/15/19 2:49 pm Comments DCP- Discharge Planning Updated by [email or web address]: Shelley Aj on 07/15/19 12:[address] Patient signed wound vac receipt. I have faxed to [facility] and called Maryellen for the [place]. DCP- Discharge Planning Updated by [email or web address]: Shelley Aj on 07/15/19 11:[address] Spoke with Rachael at [facility] and sent referral. DCP- Discharge Planning Updated by [email or web address]: Shelley Aj on 07/15/19 10:[address] Spoke with patient concerning home health and wound vac. EDITH for [facility] and [facility] signed. CM will continue to follow and assist with discharge planning/needs. DCP- Discharge Planning Updated by [email or web address]: Shelley Aj on 07/15/19 8:[address] Received orders for a home wound vac. I faxed order and clinical to [facility]. CM will continue to follow and assist with discharge planning/needs. DCP- Discharge Planning Updated by [email or web address]: Bhavani Daniels on 07/07/19 1:[address] DC PLAN: Return home independently. ANTICIPATED DC NEEDS: denied known dc needs at time of assessment. CM met with patient to complete initial dc planning assessment. CM educated patient on the CM role and verbal consent given by patient to complete assessment. CM verified patient's address, phone number, and emergency contact phone numbers. Patient lives at home and his little brother lives with him. 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 At discharge patient plans to return home independently and feels this is a safe discharge. CM discussed availability of home health, rehab services, and medical equipment. Patient denied known discharge needs at this time. Transportation provider at discharge will be his brother. CM will continue to follow and will assist as needed with dc plans/needs. Bhavani Daniels RN, [facility] DCPIA - Discharge Planning Initial Assessment Updated by [email or web address]: Bhavani Daniels on 07/07/19 2:18 pm * Is the patient Alert and Oriented? Yes * How many steps to enter\exit or inside your home? None * PCP No PCP - Info given on MD's taking new patients. * Pharmacy [facility] [address]. * Preadmission Environment Home with Family * ADLs Independent * Equipment None * List name and contact numbers for known caregivers / representatives who currently or will assist patient after discharge: Erickson Ricks - brothhernando - [phone] * Verbal permission to speak to the caregivers and representatives has been obtained from the patient. Yes * Community resources currently utilized None * Additional services required to return to the preadmission environment? No * Can the patient safely return to the preadmission environment? Yes * Has this patient been hospitalized within the prior 30 days at any hospital? No Coverage Notice Reviewer: [id number] Dae Aj Notice Issued Date-Time: 07/15/2019 11:56 Notice Type: Patient Choice Letter Notice Delivered To: Patient Relationship to Patient: Self Recruiting Intern Name: Delivery Method: HAND - Hand Delivered Delmis Days: Prior Verbal Notification: Recipient Understood Notice: Yes Recipient Signature: Yes Med Rec Note Co-signed by Attending: Coverage Notice Comment: Iban [email or web address] Last DP export: 07/15/19 11:23 a Patient Name: MARILIN RICKS Page [id number] at 1350 All edits/amendments must be made on the electronic document DICTATION DATE: 07/15/19 1349 MILK INSPECTOR: HANS 07/15/19 1349 RPT#: [id number] DC DATE: STATUS: ADM IN [facility] [address] [place] [address] END OF REPORT
[2019-07-15 15:59] VITALS: BP 134/70
--- NOTE | 2019-07-15 16:43 | MORECARE ---
CASE MANAGEMENT DISCHARGE SUMMARY PATIENT: MARILIN RICKS UNIT: [id number] ADM DATE: 07/06/19 AGE: 43 : 75 SEX: M ROOM/BED: D.1212 AUTHOR: HAKEEM,DOC PHYSICIAN: REFERRING PHYSICIAN: JACQUI AGUAYO MD DATE OF SERVICE: 07/15/19 Discharge Plan Patient Name: MARILIN RICKS Facility: [facility]:[place] : 1975 Planned Disposition: Home Anticipated Discharge Date: 07/11/19 Discharge Date: Expected LOS: 5 Initial Reviewer: [email or web address] Initial Review Date: 07/06/2019 Generated: 07/15/19 5:43 pm Comments DCP- Discharge Planning Updated by [email or web address]: Shelley Aj on 07/15/19 3:[address] Rachael with [facility] states they will see patient on Thursday. Kristen states they have their home wound vac on. I have notified Kristie with wound care. Home today with [facility] DCP- Discharge Planning Updated by [email or web address]: Shelley Aj on 07/15/19 12:[address] Patient signed wound vac receipt. I have faxed to [facility] and called Maryellen for the [facility]. DCP- Discharge Planning Updated by [id number]: Shelley Aj on 07/15/19 11:[address] Spoke with Rachael at [facility] and sent referral. DCP- Discharge Planning Updated by [email or web address]: Shelley Aj on 07/15/19 10:[address] Spoke with patient concerning home health and wound vac. EDITH for [facility] and [facility] signed. CM will continue to follow and assist with discharge planning/needs. DCP- Discharge Planning Updated by [email or web address]: Shelley Aj on 07/15/19 8:[address] Received orders for a home wound vac. I faxed order and clinical to [facility]. CM will continue to follow and assist with discharge planning/needs. DCP- Discharge Planning Updated by [id number]: Bhavani Daniels on 07/07/19 1:[address] DC PLAN: Return home independently. ANTICIPATED DC NEEDS: denied known dc needs at time of assessment. CM met with patient to complete initial dc planning assessment. CM educated patient on the CM role and verbal consent given by patient to complete assessment. CM verified patient's address, phone number, and emergency contact phone numbers. Patient lives at home and his little brother lives with him. 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 At discharge patient plans to return home independently and feels this is a safe discharge. CM discussed availability of home health, rehab services, and medical equipment. Patient denied known discharge needs at this time. Transportation provider at discharge will be his brother. CM will continue to follow and will assist as needed with dc plans/needs. Bhavani Daniels RN, [facility] DCPIA - Discharge Planning Initial Assessment Updated by [email or web address]: Bhavani Daniels on 07/07/19 2:18 pm * Is the patient Alert and Oriented? Yes * How many steps to enter\exit or inside your home? None * PCP No PCP - Info given on MD's taking new patients. * Pharmacy [facility] [address]. * Preadmission Environment Home with Family * ADLs Independent * Equipment None * List name and contact numbers for known caregivers / representatives who currently or will assist patient after discharge: Erickson Ricks - brother - [phone] * Verbal permission to speak to the caregivers and representatives has been obtained from the patient. Yes * Community resources currently utilized None * Additional services required to return to the preadmission environment? No * Can the patient safely return to the preadmission environment? Yes * Has this patient been hospitalized within the prior 30 days at any hospital? No Coverage Notice Reviewer: [id number] Dae Aj Notice Issued Date-Time: 07/15/2019 11:56 Notice Type: Patient Choice Letter Notice Delivered To: Patient Relationship to Patient: Self Aquarium Tank Attendant Name: Delivery Method: HAND - Hand Delivered Delmis Days: Prior Verbal Notification: Recipient Understood Notice: Yes Recipient Signature: Yes Med Rec Note Co-signed by Attending: Coverage Notice Comment: Iban GREGORY Last DP export: 07/15/19 12:50 p Patient Name: MARILIN RICKS Page [id number] at 1643 All edits/amendments must be made on the electronic document DICTATION DATE: 07/15/191642 SPECIAL EFFECTS TECHNICIAN: HANS 07/15/193 RPT#: [id number] DC DATE: STATUS: ADM IN [facility] [address] [place] [address] END OF REPORT
--- NOTE | 2019-07-15 17:15 | NUR ---
DISCHARGED TO HOME AMBULATORY WITH FAMILY. DISCHARGE INSTRUCTION GIVEN BOTH VERBALLY AND WRITTEN. ALL QUESTIONS ANSWERED. WOUND VAC CHANGED TO HOME MACHINE. PATIENT INSTRUCTED IN WHAT TO LOOK FOR. ALL QUESTIONS ANSWERED. IV TO LEFT AC AND SL TO LEFT FOREARM D/C WITH CATHETER INTACT. ALL BELONGINGS WITH PATIENT.
--- NOTE | 2019-07-16 18:05 | MORECARE ---
CASE MANAGEMENT DISCHARGE SUMMARY PATIENT: MARILIN RICKS UNIT: [id number] ADM DATE: 07/06/19 AGE: 43 : 75 SEX: M ROOM/BED: D.1212 AUTHOR: HAKEEM,DOC PHYSICIAN: REFERRING PHYSICIAN: JACQUI AGUAYO MD DATE OF SERVICE: 07/16/19 Discharge Plan Patient Name: MARILIN RICKS Facility: [facility]:[place] : 1975 Planned Disposition: Home Anticipated Discharge Date: 07/11/19 Discharge Date: 07/15/2019 Expected LOS: 5 Initial Reviewer: [id number] Initial Review Date: 07/06/2019 Generated: 07/16/19 7:05 pm Comments DCP- Discharge Planning Updated by [email or web address]: Shelley Aj on 07/15/19 3:[address] Rahcael with [facility] states they will see patient on Thursday. Kristen states they have their home wound vac on. I have notified Kristie with wound care. Home today with [facility] DCP- Discharge Planning Updated by [id number]: Shelley Aj on 07/15/19 12:[address] Patient signed wound vac receipt. I have faxed to [facility] and called Maryellen for the W. DCP- Discharge Planning Updated by [email or web address]: Shelley Aj on 07/15/19 11:[address] Spoke with Rachael at [facility] and sent referral. DCP- Discharge Planning Updated by [id number]: Shelley Aj on 07/15/19 10:[address] Spoke with patient concerning home health and wound vac. EDITH for [facility] and [facility] signed. CM will continue to follow and assist with discharge planning/needs. DCP- Discharge Planning Updated by [id number]: Shelley Aj on 07/15/19 8:[address] Received orders for a home wound vac. I faxed order and clinical to [facility]. CM will continue to follow and assist with discharge planning/needs. DCP- Discharge Planning Updated by [id number]: Bhavani Daniels on 07/07/19 1:[address] DC PLAN: Return home independently. ANTICIPATED DC NEEDS: denied known dc needs at time of assessment. CM met with patient to complete initial dc planning assessment. CM educated patient on the CM role and verbal consent given by patient to complete assessment. CM verified patient's address, phone number, and emergency contact phone numbers. Patient lives at home and his little brother lives with him. 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 At discharge patient plans to return home independently and feels this is a safe discharge. CM discussed availability of home health, rehab services, and medical equipment. Patient denied known discharge needs at this time. Transportation provider at discharge will be his brother. CM will continue to follow and will assist as needed with dc plans/needs. Bhavani Daniels RN, [facility] DCPIA - Discharge Planning Initial Assessment Updated by [email or web address]: Bhavani Daniels on 07/07/19 2:18 pm * Is the patient Alert and Oriented? Yes * How many steps to enter\exit or inside your home? None * PCP No PCP - Info given on MD's taking new patients. * Pharmacy [facility] [address]. * Preadmission Environment Home with Family * ADLs Independent * Equipment None * List name and contact numbers for known caregivers / representatives who currently or will assist patient after discharge: Erickson Ricks - brother - [phone] * Verbal permission to speak to the caregivers and representatives has been obtained from the patient. Yes * Community resources currently utilized None * Additional services required to return to the preadmission environment? No * Can the patient safely return to the preadmission environment? Yes * Has this patient been hospitalized within the prior 30 days at any hospital? No Coverage Notice Reviewer: [id number] Dae Aj Notice Issued Date-Time: 07/15/2019 11:56 Notice Type: Patient Choice Letter Notice Delivered To: Patient Relationship to Patient: Self Sales And Service Specialist Name: Delivery Method: HAND - Hand Delivered Delmis Days: Prior Verbal Notification: Recipient Understood Notice: Yes Recipient Signature: Yes Med Rec Note Co-signed by Attending: Coverage Notice Comment: Iban GREGORY Last DP export: 07/15/19 3:43 p Patient Name: MARILIN RICKS Page [id number] at 1805 All edits/amendments must be made on the electronic document DICTATION DATE: 07/16/19 1805 STOCK TRACER: HANS 07/16/19 1805 RPT#: [id number] DC DATE:07/15/19 STATUS: DIS IN [facility] [address] [place] [address] END OF REPORT
--- NOTE | 2019-07-18 08:35 | OP ---
PATIENT NAME: MARILIN RICKS MEDICAL RECORD: [id number] :75 LOCATION:D.M3 D.1212 ADMISSION DATE:07/06/19 SURGEON: BRITTANY MURPHY MD DATE OF OPERATION: 07/14/2019 PREOPERATIVE DIAGNOSIS: Multiple abscesses of the left lower extremity. PREOPERATIVE DIAGNOSIS: Multiple abscesses of the left lower extremity. PROCEDURE: 1. Repeat excisional debridement of multiple abscesses of the left lower extremity. 2. Application of wound VAC that is negative pressure system. SURGEON: Brittany Murphy MD ANESTHESIA: General. Please note that the I and D was of skin, subcutaneous tissue, portions of fat, fascia, muscle, and bone. The wound measurements are as above. Anterior tibial measurements is approximately 5 x 3 x 1, medial malleolar measurements 2 x 1 x 0.5. A dorsal foot measurements approximately 6 x 3 x 1. All were treated with excisional debridement. OPERATIVE SUMMARY IN DETAIL: After obtaining the appropriate preoperative orthopedic surgery consent as well as anesthetic consultation, evaluation and clearance, the patient was brought to the in supine position. After general laryngeal mask airway was administered, the left lower extremity was prepped and draped in routine sterile fashion. Please note for wet prep Betadine paint. All the previous packing was removed. Serial and sequential debridement was done of all 3 abscesses using curettage, rongeur, as well as scalpel, removing portions of the above-mentioned tissue with the appropriate measurements. Having cleaned these out thoroughly and removing all tissue, wound VAC was fashioned and placed over all 3. The wound VAC was set at 125 mm of continuous suction at medium intensity. Good seal was achieved. The patient was awakened and taken to the recovery room in stable condition. All final needle and sponge counts were correct. TRANSINT:[id number] Voice Confirmation ID: [id number] DOCUMENT ID: [id number] BRITTANY MURPHY MD at 0835 CC: [id number] DICTATION DATE: 07/15/19 1125 LOCAL AREA NETWORK SYSTEMS ADMINSTRATOR: 07/15/19 1831 DIS IN 07/15/19 [facility] [address] [place] [address]
--- NOTE | 2019-07-18 08:35 | OP ---
PATIENT NAME: MARILIN RICKS MEDICAL RECORD: [id number] :75 LOCATION:D.M3 D.1212 ADMISSION DATE:07/06/19 SURGEON: BRITTANY MURPHY MD DATE OF OPERATION: 07/11/2019 PREOPERATIVE DIAGNOSIS: Multiple abscesses of the left lower extremity. PREOPERATIVE DIAGNOSIS: Multiple abscesses of the left lower extremity. PROCEDURE: I&D of multiple abscesses of the left lower extremity. SURGEON: Brittany Murphy MD PROFESSOR OF COMMUNICATION AND WRITING: Finn Doyle. INTRAOPERATIVE COMPLICATIONS: None. SUMMARY OF PATHOLOGIC FINDINGS: Upon incising the 3 large abscesses, one on the anterior aspect of the abarca at the mid aspect of the abarca, one on the medial malleolus and one on the dorsum of the foot, all had substantial amounts of purulence. Please note that regular cultures were taken out along with DNA bacterial identification. INDICATIONS: This is a 43-year-old gentleman who was hospitalized several days ago with cellulitis. After antibiotics, it localized to 3 places. Orthopedic surgery was consulted and operative intervention as above was scheduled. OPERATIVE SUMMARY IN DETAIL: After obtaining the appropriate preoperative orthopedic surgery consent as well as anesthetic consultation, evaluation and clearance the patient was brought to the operating room and placed on operating table in supine position. After general laryngeal mask airway was administered, the patient's left lower extremity was then prepped and draped in routine sterile fashion. Initially, the patient had TIVA with regional; however, the block was ineffective. Therefore, the patient was rapidly sequenced and intubated with no difficulty and no emesis. After the patient was adequately anesthetized, the procedure was carried out. The first abscess was opened. Cultures were taken. After substantial amounts of excisional debridement with curettage, rongeur and scalpel, the wound measuring approximately 5 cm x 3 cm x 1 cm deep was packed. Next, attention was turned to the medial malleolus. Likewise, incision measuring approximately 2 cm x 1 cm x 0.5cm depth was also curettaged, rongeured and excisionally debrided with the scalpel, it was also irrigated and packed and lastly the dorsum of the foot required approximately 6 cm incision x 3 cm after opening. This was a substantial lateral undermining of approximately 6 cm. After copious curettage, rongeur and scalpel, excisional debridement, the wound was packed again with half inch iodoform gauze. Having completed this, all wounds were covered with sterile bandages. The patient was awakened, taken to recovery room in stable condition. All final needle and sponge counts were correct. TRANSINT:[id number] Voice Confirmation ID: [id number] DOCUMENT ID: [id number] OPERATIVE REPORT [id number] MARILIN RICKS MD, BRITTANY HAQUE at 0835 CC: [id number] DICTATION DATE: 07/15/19 1101 SURVEY PARTY CHIEF: 07/15/19 1516 DIS IN 07/15/19 [id number] [place] [address]
== END 2019-07-15 17:15 | disposition home health service (06) | DRG 603 ==
LOC: D.ER 14:24 → D.M3 19:28
PROVIDERS: Family Medicine; Orthopaedic Surgery; ADMIT Family Medicine; ATTEND Family Medicine
PROC: 0HBLXZZ Excision of Left Lower Leg Skin, External Approach (ICD-10-PCS; 2019-07-11)
PROC: 0HBLXZZ Excision of Left Lower Leg Skin, External Approach (ICD-10-PCS; 2019-07-14)
PROC: 2W1MX6Z Compression of Left Lower Extremity using Pressure Dressing (ICD-10-PCS; principal; 2019-07-14 13:45)
DX: L03.116 Cellulitis of left lower limb (principal); F17.213 Nicotine dependence, cigarettes, with withdrawal; E87.1 Hypo-osmolality and hyponatremia; F15.90 Other stimulant use, unspecified, uncomplicated; D64.9 Anemia, unspecified; N28.89 Other specified disorders of kidney and ureter

== ENCOUNTER 2019-07-15 19:16 | Emergency (ER) | payer MEDICAID ==
[~2019-07-15] VITALS: Ht 188 cm; Wt 127.3 kg
[~2019-07-15 19:16] MED LIST: DOXYCYCLINE HY100 M2 PO; IBUPROFEN100 MG/5 M PO; PROTONIX40 MG PO
[2019-07-15 19:24] VITALS: BP 131/96; Ht 188 cm; Wt 127.3 kg
== END 2019-07-15 20:12 | disposition home or self-care (01) ==
LOC: D.ER 19:16
DX: Z48.00 Encounter for change or removal of nonsurgical wound dressing (principal)